=== PATIENT | male | born 1970 | race Caucasian/White ===

== ENCOUNTER → 2018-07-02 | Outpatient (CLI) | payer OTHER ==
[~2018-07-02] MED LIST: AUGMENTIN 875 M1 TAB PO; CLARITIN10 MG PO; VICODIN ES 7501 TAB PO
== END | disposition home or self-care (01) ==
LOC: US 06-13 07:30
DX: K76.0 Fatty (change of) liver, not elsewhere classified (principal)

== ENCOUNTER 2019-04-19 02:26 | Emergency (ER) | payer OTHER ==
--- NOTE | ~2019-04-19 | EKG ---
[place], [place] ELECTROCARDIOGRAM REPORT NAME: ANGELO DOWLING UNIT #: [id number] ROOM: DOCTOR: EPIPHANY DRAFT REPORT BIRTHDATE: [birth year] [facility] Test Date: 2019-04-19 Test Time: 05:24:21 Pat Name: ANGELO DOWLING Department: Room: Gender: M Lead Teller: : 1970 Requested By: MYRIAM HUFFMAN Order Number: [id number] Reading MD: Gaetano Penny MD Measurements Intervals [place] Rate: 85 P: 8 UT: 153 QRS: 2 QRSD: 95 T: 29 QT: 360 QTc: 428 Interpretive Statements Sinus rhythm No previous ECG available for comparison Electronically Signed On 04-19-2019 13:42:00 PDT by Gaetnao Penny MD CM:EKGRPT:ELECTROCARDIOGRAM REPORT [id number] MYRIAM HUFFMAN MD EPIPHANY DRAFT REPORT MYRIAM HUFFMAN MD
--- NOTE | ~2019-04-19 | EKG ---
[place], [place] ELECTROCARDIOGRAM REPORT NAME: ANGELO DOWLING UNIT #: [id number] ROOM: DOCTOR: EPIPHANY DRAFT REPORT BIRTHDATE: [birth year] [facility] Test Date: 2019-04-19 Test Time: 02:42:26 Pat Name: ANGELO DOWLING Department: Room: Gender: M Skating Carhop: : 1970 Requested By: MYRIAM HUFFMAN Order Number: [id number] Reading MD: Gaetano Penny MD Measurements Intervals [place] Rate: 87 P: 0 PA: 158 QRS: 0 QRSD: 95 T: 31 QT: 356 QTc: 429 Interpretive Statements Sinus rhythm No previous ECG available for comparison Electronically Signed On 04-19-2019 13:41:30 PDT by Gaetano Penny MD CM:EKGRPT:ELECTROCARDIOGRAM REPORT [id number] MYRIAM HUFFMAN MD EPIPHANY DRAFT REPORT MYRIAM HUFFMAN MD
--- NOTE | ~2019-04-19 | EKG ---
[place], [place] ELECTROCARDIOGRAM REPORT NAME: ANGELO DOWLING UNIT #: [id number] ROOM: DOCTOR: EPIPHANY DRAFT REPORT BIRTHDATE: [birth year] [facility] Test Date: 2019-04-19 Test Time: 08:47:39 Pat Name: ANGELO DOWLING Department: Room: Gender: M Inseamer: Sarah Ndiaye : 1970 Requested By: MYRIAM HUFFMAN Order Number: [id number] Reading MD: Gaetano Penny MD Measurements Intervals [place] Rate: 95 P: 39 [place]: 127 QRS: 4 QRSD: 89 T: 29 QT: 340 QTc: 428 Interpretive Statements Sinus rhythm Baseline wander in lead(s) II No previous ECG available for comparison Electronically Signed On 04-19-2019 13:42:04 PDT by Gaetano Penny MD CM:EKGRPT:ELECTROCARDIOGRAM REPORT [id number] MYRIAM HUFFMAN MD EPIPHANY DRAFT REPORT MYRIAM HUFFMAN MD
[2019-04-19 02:50] LABS: BASO # 0.1 10*3/uL (0.0-0.1); BASO % 0.9 % (0.0-1.0); EOS # 0.1 10*3/uL (0.0-0.4); EOS % 1.6 % (1.0-4.0); HEMATOCRIT 45.2 % (42.0-52.0); HEMOGLOBIN 15.3 g/dl (14.0-18.0); LYMPH # 1.5 10*3/uL (1.3-4.4); LYMPH % 26.9 % (27.0-41.0); MEAN CELL VOLUME 99.3 fl (80.0-94.0); MEAN CORPUSCULAR HGB 33.6 pg (27.0-31.0); MEAN CORPUSCULAR HGB CONC 33.8 g/dl (33.0-37.0); MEAN PLATELET VOLUME 9.7 fl (9.6-12.3); MONO # 0.7 10*3/uL (0.1-1.0); MONO % 12.7 % (3.0-9.0); NEUT # 3.3 10*3/uL (2.3-7.9); NEUT % 57.5 % (47.0-73.0); PLATELET COUNT AUTOMATED 184 10*3/uL (130-400); RED BLOOD COUNT 4.55 10*6/uL (4.50-5.90); RED CELL DISTRI WIDTH 11.2 % (0-14.5); WHITE BLOOD COUNT 5.7 10*3/uL (4.8-10.8)
[2019-04-19 03:08] LABS: ALBUMIN 4.2 gm/dl (3.1-4.5); ALKALINE PHOSPHATASE 82 U/L (45-117); BUN 6 mg/dl (7-24); CHLORIDE 97 mmol/L (98-107); CREATININE 0.92 mg/dL (0.70-1.30); POTASSIUM 3.8 mmol/L (3.5-5.1); SGOT/AST 190 IU/L (3-35); SGPT/ALT 179 U/L (12-78); SODIUM 132 mmol/L (136-145); TOTAL PROTEIN 8.1 gm/dL (6.4-8.2); TROPONIN I < 0.015 ng/ml (<0.045)
[2019-04-19 03:09] LABS: TROPONIN I < 0.015 ng/ml (<0.045)
[2019-04-19 03:12] LABS: ACT PARTIAL THROMBO TIME 26.4 SECONDS (20.0-32.1); INTERNATIONAL NORM RATIO 0.9 (2.0-3.5)
== END 2019-04-19 09:51 | disposition home or self-care (01) ==
LOC: ED 02:26
PROVIDERS: Emergency Medicine Emergency Medical Services
DX: R06.00 Dyspnea, unspecified (principal); Z98.890 Other specified postprocedural states

== ENCOUNTER 2020-04-01 11:04 | Emergency (ER) | payer BC ==
[~2020-04-01] VITALS: Ht 187.9 cm; Wt 108.9 kg
[2020-04-01 11:38] LABS: BASO # 0.1 10*3/uL (0.0-0.1); BASO % 0.8 % (0.0-1.0); EOS # 0.1 10*3/uL (0.0-0.4); EOS % 1.2 % (1.0-4.0); LYMPH # 1.5 10*3/uL (1.3-4.4); LYMPH % 13.3 % (27.0-41.0); MEAN CELL VOLUME 93.8 fl (80.0-94.0); MEAN CORPUSCULAR HGB 31.5 pg (27.0-31.0); MEAN CORPUSCULAR HGB CONC 33.6 g/dl (33.0-37.0); MONO # 1.3 10*3/uL (0.1-1.0); MONO % 11.4 % (3.0-9.0); NEUT # 8.2 10*3/uL (2.3-7.9); NEUT % 72.6 % (47.0-73.0); PLATELET COUNT AUTOMATED 247 10*3/uL (130-400); RED CELL DISTRI WIDTH 11.7 % (0-14.5); WHITE BLOOD COUNT 11.3 10*3/uL (4.8-10.8)
[2020-04-01 11:53] LABS: ALBUMIN 3.8 gm/dl (3.1-4.5); ALKALINE PHOSPHATASE 84 U/L (45-117); BUN 4 mg/dl (7-24); CHLORIDE 100 mmol/L (98-107); CREATININE 0.86 mg/dL (0.70-1.30); POTASSIUM 3.8 mmol/L (3.5-5.1); SGOT/AST 83 IU/L (3-35); SGPT/ALT 79 U/L (12-78); SODIUM 134 mmol/L (136-145); TOTAL PROTEIN 7.9 gm/dL (6.4-8.2)
[2020-04-01] MEDS ORDERED: CEPHALEXIN500 M1 PO (13:13)
[2020-04-01] MEDS ORDERED: SEPTDS PO (13:13)
[2020-04-01] MEDS ORDERED: ANTIBIOTIC28.4 GM T (13:13)
== END 2020-04-01 13:31 | disposition home or self-care (01) ==
LOC: ED 11:04
PROVIDERS: Nurse Practitioner Family
DX: S80.11XA Contusion of right lower leg, initial encounter (principal); L03.115 Cellulitis of right lower limb; W18.39XA Other fall on same level, initial encounter; Y93.89 Activity, other specified; Y92.89 Other specified places as the place of occurrence of the external cause; Y99.8 Other external cause status

== ENCOUNTER → 2022-01-24 | Outpatient (CLI) | payer BC ==
[~2022-01-24] MED LIST changes: +ANTIBIOTIC28.4 GM T; +CEPHALEXIN500 M1 PO; +SEPTDS PO
[2022-01-24 12:24] LABS: CHLORIDE 97 mmol/L (98-107); POTASSIUM 3.8 mmol/L (3.5-5.1); SODIUM 133 mmol/L (136-145)
[2022-01-24 12:41] LABS: ALKALINE PHOSPHATASE 93 U/L (45-117); BUN 8 mg/dl (7-24); CREATININE 0.98 mg/dL (0.70-1.30); SGOT/AST 41 IU/L (3-35); SGPT/ALT 41 U/L (12-78); TOTAL PROTEIN 7.7 gm/dL (6.4-8.2)
== END | disposition home or self-care (01) ==
LOC: LAB 11:31
PROVIDERS: ATTEND Podiatrist
DX: G60.9 Hereditary and idiopathic neuropathy, unspecified (principal); B35.1 Tinea unguium; Z79.899 Other long term (current) drug therapy; D64.9 Anemia, unspecified

== ENCOUNTER 2023-09-11 12:10 | Inpatient (IN) | payer OTHER ==
[~2023-09-11] VITALS: Ht 188 cm; Wt 137.9 kg
[~2023-09-11 12:10] MED LIST changes: +ASPIRIN CHEWABL81 MG PO; +ATARAX,VISTARIL50 MG PO; +BUMETANIDE1 MG PO; +NATURE'S BLEND100 M2 PO; +OXYCODONE HCL10 M1 PO; +POTASSIUM CHLO20 ME4 PO; +ZESTORETIC 20-1 EACH PO
[2023-09-11 12:23] VITALS: BP 157/66
[2023-09-11 12:52] LABS: BASO # 0.1 10*3/uL (0.0-0.1); BASO % 0.9 % (0.0-1.0); EOS # 0.1 10*3/uL (0.0-0.4); HEMATOCRIT 41.2 % (42.0-52.0); LYMPH # 1.1 10*3/uL (1.3-4.4); LYMPH % 10.8 % (27.0-41.0); MEAN CELL VOLUME 96.7 fl (80.0-94.0); MEAN CORPUSCULAR HGB 32.4 pg (27.0-31.0); MEAN CORPUSCULAR HGB CONC 33.5 g/dl (33.0-37.0); MEAN PLATELET VOLUME 10.3 fl (9.6-12.3); MONO # 0.7 10*3/uL (0.1-1.0); MONO % 6.8 % (3.0-9.0); NEUT # 7.9 10*3/uL (2.3-7.9); NEUT % 79.7 % (47.0-73.0); PLATELET COUNT AUTOMATED 173 10*3/uL (130-400); RED BLOOD COUNT 4.26 10*6/uL (4.50-5.90)
[2023-09-11 13:03] LABS: ACT PARTIAL THROMBO TIME 29.7 SECONDS (20.0-32.1)
[2023-09-11 13:13] LABS: ETHYL ALCOHOL 4.7 mg/dl (<3); POTASSIUM 3.8 mmol/L (3.4-5.1); TOTAL PROTEIN 8.2 gm/dL (6.0-8.0)
[2023-09-11] MEDS ORDERED: DIAZEPAM 10 MG/2 ML SYR IV ONE (13:20)
[2023-09-11 13:29] LABS: URINE AMPHETAMINES Negative (1000ng/ml); URINE BARBITURATES Negative (200ng/ml); URINE BENZODIAZEPINES Negative (200ng/ml); URINE CANNABINOIDS (THC) Negative (50ng/ml); URINE COCAINE Negative (300ng/ml); URINE METHADONE Negative (300ng/ml); URINE OPIATES Negative (300ng/ml); URINE PHENCYCLIDINE Negative (25ng/ml)
[2023-09-11 13:31] LABS: BILIRUBIN Negative (Negative); BLOOD Negative (Negative); CLARITY Clear (Clear); COLOR Yellow (Yellow); GLUCOSE Negative (Negative); KETONE Negative (Negative); LEUKO ESTERASE Negative (Negative); NITRITE Negative (Negative); SPECIFIC GRAVITY <= 1.005 (1.001-1.030); UROBILINOGEN 0.2 E.U./dl (0.0-1.0)
[2023-09-11 13:50] LABS: EPITHELIAL CELLS 0-2; RBC 0-2 rbc/hpf (0-2)
[2023-09-11] MEDS ORDERED: MG-AL HYDROXIDE/SIMETICONE 30 ML UDC PO PRN (15:00)
[2023-09-11] MEDS ORDERED: Sennosides A and B 8.6 MG TAB PO PRN (15:00)
[2023-09-11] MEDS ORDERED: Loperamide Hydrochloride 2 MG CAP PO PRN ×2 (15:00)
[2023-09-11] MEDS ORDERED: BISACODYL 10 MG SUPP R PRN (15:00)
[2023-09-11] MEDS ORDERED: IBUPROFEN 600 MG TAB PO PRN (15:00)
[2023-09-11] MEDS ORDERED: Ondansetron Hydrochloride 4 MG TAB PO PRN (15:00)
[2023-09-11] MEDS ORDERED: Ondansetron Hydrochloride 4 MG/2 ML VIAL IV PRN (15:00)
[2023-09-11] MEDS ORDERED: Nicotine 21 MG PATCH T PRN (15:00)
[2023-09-11] MEDS ORDERED: MULTIVITAMIN CONCENTRATE (IV) 10 ML,Thiamine 100 MG,FOLIC ACID 1 MG in SODIUM CHLORIDE ... IV ONE (15:05)
[2023-09-11] MEDS ORDERED: LORazepam 1 MG TAB PO SCH (16:00)
[2023-09-11 17:43] VITALS: BP 129/63
[2023-09-11] MEDS ORDERED: OXYCODONE HCL (IR) 10 MG TABLET PO SCH (18:00)
[2023-09-11] MEDS ORDERED: SODIUM CHLORIDE 0.9% 1,000 ML IV ONE ×2 (18:00→19:13)
[2023-09-11 20:00] VITALS: BP 135/66
[2023-09-12 06:33] LABS: BASO # 0.1 10*3/uL (0.0-0.1); BASO % 0.9 % (0.0-1.0); EOS # 0.2 10*3/uL (0.0-0.4); EOS % 1.7 % (1.0-4.0); HEMATOCRIT 35.1 % (42.0-52.0); LYMPH # 1.5 10*3/uL (1.3-4.4); LYMPH % 16.1 % (27.0-41.0); MEAN CORPUSCULAR HGB 32.4 pg (27.0-31.0); MEAN PLATELET VOLUME 10.4 fl (9.6-12.3); MONO # 0.7 10*3/uL (0.1-1.0); MONO % 7.4 % (3.0-9.0); NEUT # 6.6 10*3/uL (2.3-7.9); NEUT % 73.1 % (47.0-73.0); PLATELET COUNT AUTOMATED 159 10*3/uL (130-400); RED BLOOD COUNT 3.58 10*6/uL (4.50-5.90); RED CELL DISTRI WIDTH 11.9 % (0-14.5); WHITE BLOOD COUNT 9.1 10*3/uL (4.8-10.8)
[2023-09-12 07:06] LABS: ALKALINE PHOSPHATASE 80 U/L (46-116); BUN 18 mg/dl (9-23); CHLORIDE 92 mmol/L (98-107); CHOLESTEROL 204 mg/dL (<200); LDL CHOLESTEROL 137 mg/dL (9-159); POTASSIUM 3.5 mmol/L (3.4-5.1); SGPT/ALT 50 U/L (5-49); TOTAL PROTEIN 6.8 gm/dL (6.0-8.0); TRIGLYCERIDES 104 mg/dl (<150)
[2023-09-12 07:19] LABS: VITAMIN D, 25-HYDROXY 14.9 ng/mL (30-100)
[2023-09-12] MEDS ORDERED: POTASSIUM PHOSPHATE 40 MMOL in SODIUM CHLORIDE 0.9% 500 ML IV ONE (07:25)
[2023-09-12 08:35] VITALS: BP 121/64
[2023-09-12] MEDS ORDERED: LISINOPRIL 10 MG TAB ONE (09:35)
[2023-09-12] MEDS ORDERED: MULTIVITAMIN 1 TAB TAB PO SCH (10:00)
[2023-09-12] MEDS ORDERED: FOLIC ACID 1 MG TAB PO SCH (10:00)
[2023-09-12] MEDS ORDERED: Thiamine 100 MG TAB PO SCH (10:00)
[2023-09-12] MEDS ORDERED: LISINOPRIL 20 MG TAB PO SCH (10:00)
[2023-09-12] MEDS ORDERED: Cholecalciferol 2,000 UNIT TABLET (50 MCG) PO SCH (10:11)
[2023-09-12 12:01] VITALS: BP 106/56
[2023-09-12 15:01] VITALS: BP 125/59
[2023-09-12 15:15] VITALS: BP 141/63
[2023-09-12] MEDS ORDERED: LORazepam 1 MG TAB PO PRN (18:20)
[2023-09-12 20:00] VITALS: BP 132/47
[2023-09-12] MEDS ORDERED: hydrOXYzine pamoate 25 MG CAP PO ONE (21:20)
[2023-09-13] VITALS: BP 134/60
[2023-09-13] MEDS ORDERED: LORazepam 1 MG TAB PO PRN
[2023-09-13 05:11] LABS: BUN 14 mg/dl (9-23); CHLORIDE 95 mmol/L (98-107)
[2023-09-13 08:00] VITALS: BP 127/68
[2023-09-13] MEDS ORDERED: hydrOXYzine 50 MG CAP PO PRN (08:55)
[2023-09-13 12:00] VITALS: BP 136/46
[2023-09-13 16:00] VITALS: BP 133/63
[2023-09-13 20:00] VITALS: BP 138/59
[2023-09-14] VITALS: BP 137/59
[2023-09-14 06:59] LABS: BUN 11 mg/dl (9-23); CHLORIDE 98 mmol/L (98-107); POTASSIUM 4.1 mmol/L (3.4-5.1)
[2023-09-14 08:00] VITALS: BP 130/55
[2023-09-14] MEDS ORDERED: RESTORIL15 MG PO (10:42)
[2023-09-14] MEDS ORDERED: VITAMIN D350 MCG PO (10:42)
[2023-09-14] MEDS ORDERED: ZESTRIL20 MG PO (12:39)
== END 2023-09-14 12:20 | disposition home or self-care (01) | DRG 896 ==
LOC: ED 12:10 → EDHOLD 13:24 → 5E 09-12 14:52
PROVIDERS: Emergency Medicine; Student in an Organized Health Care Education/Training Program; ADMIT Internal Medicine; ATTEND Internal Medicine
DX: F10.232 Alcohol dependence with withdrawal with perceptual disturbance (principal); N17.0 Acute kidney failure with tubular necrosis; E87.1 Hypo-osmolality and hyponatremia; I10 Essential (primary) hypertension; G89.29 Other chronic pain; M54.9 Dorsalgia, unspecified; D53.9 Nutritional anemia, unspecified; M54.50 Low back pain, unspecified; Z98.1 Arthrodesis status; Z87.891 Personal history of nicotine dependence; Z82.49 Family history of ischemic heart disease and other diseases of the circulatory system; Z83.3 Family history of diabetes mellitus; Y90.0 Blood alcohol level of less than 20 mg/100 ml

== ENCOUNTER → 2023-12-27 | Outpatient (CLI) | payer OTHER ==
[~2023-12-27] MED LIST changes: +RESTORIL15 MG PO; +VITAMIN D350 MCG PO; +ZESTRIL20 MG PO
== END | disposition home or self-care (01) ==
LOC: CT 07:35
PROVIDERS: ATTEND Internal Medicine Critical Care Medicine
DX: R91.8 Other nonspecific abnormal finding of lung field (principal); R06.02 Shortness of breath; G47.33 Obstructive sleep apnea (adult) (pediatric); R06.83 Snoring; K80.20 Calculus of gallbladder without cholecystitis without obstruction; I25.10 Atherosclerotic heart disease of native coronary artery without angina pectoris; I70.0 Atherosclerosis of aorta; E88.2 Lipomatosis, not elsewhere classified; B66 Other fluke infections; Z68.38 Body mass index [BMI] 38.0-38.9, adult

== ENCOUNTER → 2024-01-14 | Outpatient (CLI) | payer OTHER ==
[2024-01-14 09:40] LABS: ABG BASE EXCESS 1.2 mmol/L (-2.0-2.0); ARTERIAL BLOOD GAS PH 7.518 (7.35-7.45)
== END ==
LOC: LAB 09:12
PROVIDERS: ATTEND Internal Medicine Critical Care Medicine
DX: R06.83 Snoring (principal); G47.00 Insomnia, unspecified; G47.33 Obstructive sleep apnea (adult) (pediatric); R06.02 Shortness of breath; Z68.38 Body mass index [BMI] 38.0-38.9, adult

== ENCOUNTER → 2024-08-20 | Outpatient (CLI) | payer OTHER ==
[~2024-08-20] MED LIST changes: +AMITRIPTYLINE150 M1 PO; +ASPIRIN ADULT L81 M2 PO; +ATORVASTATIN CA40 M1 PO; +BRIXADI8 MG/0.16 SQ; +FAMOTIDINE20 M1 PO; +JARDIANCE10 MG PO; +LISINOPRIL20 MG PO; +LOPRESSOR25 MG PO; +MAGNESIUM OXID400 M1 PO; +METRONIDAZ500 MG/100 IV; +NATURE'S BLEND F1 MG PO; +OMEPRAZOLE40 MG PO; +OXYCODONE-ACET1 EAC3 PO; +PERCOCET 10-321 EACH PO; +TEMAZEPAM15 M1 PO; +TOBRAMYCIN IV; +VANC1PIG IV; +VITAMIN D3125 MC1 PO; +XARE15TA PO; +XARE20MG PO; +ZESTRIL10 MG PO
== END | disposition home or self-care (01) ==
LOC: WOUNDCARE 02:31
PROVIDERS: ATTEND Nurse Practitioner Family
DX: L24.A0 Irritant contact dermatitis due to friction or contact with body fluids, unspecified (principal); I10 Essential (primary) hypertension; I25.10 Atherosclerotic heart disease of native coronary artery without angina pectoris; M86.9 Osteomyelitis, unspecified; N19 Unspecified kidney failure; E44.0 Moderate protein-calorie malnutrition; Z87.891 Personal history of nicotine dependence; Z95.1 Presence of aortocoronary bypass graft; Z98.890 Other specified postprocedural states; Z79.82 Long term (current) use of aspirin; Z79.899 Other long term (current) drug therapy

== ENCOUNTER → 2024-11-20 | Outpatient (CLI) | payer OTHER | END | disposition home or self-care (01) | LOC: RAD 03:10 | PROVIDERS: ATTEND Podiatrist | DX: Z01.818 Encounter for other preprocedural examination (principal) ==

== ENCOUNTER → 2024-11-26 | Day surgery (SDC) | payer OTHER ==
[~2024-11-26] VITALS: Ht 185.4 cm; Wt 104.3 kg
[~2024-11-26] MED LIST changes: +ACETAMINOPHEN500 M4 PO; +AMOX-CLAV 875-1 EACH PO; +Lidocaine Hydrochloride 5 ML VIAL IV ONE; +MINERAL OIL 30 ML UDC PO ONE; +Midazolam Hydrochloride 2 MG/2 ML VIAL IV ONE; +Ondansetron Hydrochloride 4 MG/2 ML VIAL IV ONE; +PROPOFOL 200 MG/20 ML VIAL IV ONE; +SEVOFLURANE 250 ML BOT INH ONE; +SODIUM CHLORIDE 0.9% 1,000 ML IV ONE; +THROMBIN 5,000 UNIT VIAL T ONE; +VASOPRESSIN 100 ML IV ONE; +Vancomycin Hydrochloride 1,000 MG VIAL ONE; +ceFAZolin sodium 2GM/20ML IV ONE; +ceFAZolin sodium/sodium chlor 20 ML IV ONE; +ePHEDrine Sulfate 25 MG/5 ML SYRINGE IV ONE; +fentaNYL CITRATE 100 MCG/2 ML VIAL IV ONE
[2024-11-26 06:52] VITALS: BP 96/40
[2024-11-26 09:19] VITALS: BP 102/34
[2024-11-26 09:34] VITALS: BP 109/37
[2024-11-26 09:50] VITALS: BP 110/36
[2024-11-26 10:16] VITALS: BP 113/29
[2024-11-27 13:07] LABS: ACID FAST SPEC PROCESSING Tissue Grinding (.)
[2024-11-27 13:07] LABS: ACID FAST SPEC PROCESSING Tissue Grinding (.)
== END | disposition home or self-care (01) ==
LOC: SDC 11-24 08:00
PROVIDERS: ATTEND Podiatrist
DX: S91.302A Unspecified open wound, left foot, initial encounter (principal); S91.301A Unspecified open wound, right foot, initial encounter; M86.8X7 Other osteomyelitis, ankle and foot; I10 Essential (primary) hypertension; E11.9 Type 2 diabetes mellitus without complications; E66.9 Obesity, unspecified; I25.10 Atherosclerotic heart disease of native coronary artery without angina pectoris; I48.91 Unspecified atrial fibrillation; Z87.891 Personal history of nicotine dependence; Z95.1 Presence of aortocoronary bypass graft; Z68.37 Body mass index [BMI] 37.0-37.9, adult; X58.XXXA Exposure to other specified factors, initial encounter; Y93.89 Activity, other specified; Y92.89 Other specified places as the place of occurrence of the external cause; Y99.8 Other external cause status

== ENCOUNTER → 2025-02-23 | Outpatient (CLI) | payer OTHER ==
[~2025-02-23] MED LIST changes: -Lidocaine Hydrochloride 5 ML VIAL IV ONE; -MINERAL OIL 30 ML UDC PO ONE; -Midazolam Hydrochloride 2 MG/2 ML VIAL IV ONE; -Ondansetron Hydrochloride 4 MG/2 ML VIAL IV ONE; -PROPOFOL 200 MG/20 ML VIAL IV ONE; -SEVOFLURANE 250 ML BOT INH ONE; -SODIUM CHLORIDE 0.9% 1,000 ML IV ONE; -THROMBIN 5,000 UNIT VIAL T ONE; -VASOPRESSIN 100 ML IV ONE; -Vancomycin Hydrochloride 1,000 MG VIAL ONE; -ceFAZolin sodium 2GM/20ML IV ONE; -ceFAZolin sodium/sodium chlor 20 ML IV ONE; -ePHEDrine Sulfate 25 MG/5 ML SYRINGE IV ONE; -fentaNYL CITRATE 100 MCG/2 ML VIAL IV ONE
[2025-02-23 11:14] LABS: BASO # 0.1 10*3/uL (0.0-0.1); BASO % 0.5 % (0.0-1.0); EOS # 0.3 10*3/uL (0.0-0.4); EOS % 2.6 % (1.0-4.0); MEAN CELL VOLUME 81.1 fl (80.0-94.0); MEAN CORPUSCULAR HGB 23.0 pg (27.0-31.0); MEAN PLATELET VOLUME 10.9 fl (9.6-12.3); MONO # 0.7 10*3/uL (0.1-1.0); MONO % 5.8 % (3.0-9.0); NEUT # 8.6 10*3/uL (2.3-7.9); NEUT % 76.2 % (47.0-73.0); NUCLEATED RED BLOOD CELL 0.0 % (0.0-0.0); NUCLEATED RED BLOOD CELL 0.0 10*3/uL (0.0-0.0); PLATELET COUNT AUTOMATED 228 10*3/uL (130-400); RED CELL DISTRI WIDTH 15.8 % (0-14.5)
[2025-02-23 11:47] LABS: BUN 8 mg/dl (9-23); FREE T4 1.05 ng/dl (0.89-1.76); SGPT/ALT 9 U/L (5-49)
== END | disposition home or self-care (01) ==
LOC: LAB 10:35
PROVIDERS: ATTEND Internal Medicine
DX: K52.9 Noninfective gastroenteritis and colitis, unspecified (principal)